=== PATIENT | female | born 1985 | race Two or more races ===

== ENCOUNTER 2020-06-20 12:58 | Emergency (ER) | payer OTHER ==
[~2020-06-20] VITALS: Ht 154.9 cm; Wt 63.5 kg
== END 2020-06-20 21:17 | disposition home or self-care (01) ==
LOC: ER 12:58
DX: S91.111A Laceration without foreign body of right great toe without damage to nail, initial encounter (principal); W25.XXXA Contact with sharp glass, initial encounter; Y93.89 Activity, other specified; Y92.59 Other trade areas as the place of occurrence of the external cause; Y99.8 Other external cause status